=== PATIENT | male | born 1960 | race Caucasian/White ===

== ENCOUNTER 2022-08-10 09:17 | Emergency (ER) | payer OTHER ==
[~2022-08-10] VITALS: Ht 195.6 cm; Wt 113.4 kg
[2022-08-10 09:32] VITALS: BP_SYST 139
[2022-08-10 10:42] VITALS: BP_SYST 139
== END 2022-08-10 10:42 | disposition home or self-care (01) ==
LOC: SED 09:17
DX: M96.842 Postprocedural seroma of a musculoskeletal structure following a musculoskeletal system procedure (principal); I10 Essential (primary) hypertension; E78.5 Hyperlipidemia, unspecified; Z88.6 Allergy status to analgesic agent; Z79.899 Other long term (current) drug therapy
CPT/HCPCS: 99281

== ENCOUNTER 2024-05-27 15:17 | Emergency (ER) | payer OTHER ==
[~2024-05-27] VITALS: Ht 193 cm; Wt 104.3 kg
[2024-05-27 15:35] VITALS: BP_SYST 137; PULSE 85; RESP 18; TEMP 98.3; O2SAT 98
[2024-05-27 16:19] LABS: BASOPHILS % (AUTO) 0.6 % (0.0-2.0); EOSINOPHILS # (AUTO) 0.3 K/uL (0.0-0.4); EOSINOPHILS % (AUTO) 3.8 % (0.0-4.0); HEMATOCRIT 42.1 % (36-54); HEMOGLOBIN 14.5 g/dL (14.0-18.0); LYMPHOCYTES # (AUTO) 1.6 K/uL (1.0-5.5); MEAN CORPUSCULAR HEMOGLOBIN 32 pg (27-31); MEAN CORPUSCULAR HGB CONC 35 % (32-36); MEAN CORPUSCULAR VOLUME 92 fL (79.0-98.0); MONOCYTES # (AUTO) 0.4 K/uL (0.0-1.0); MONOCYTES % (AUTO) 6.4 % (1.7-9.3); NEUTROPHILS # (AUTO) 4.7 K/uL (1.8-7.7); NEUTROPHILS % (AUTO) 66.2 % (40.0-70.0); PLATELET COUNT (AUTO) 202 K/uL (130-430); RED BLOOD CELL COUNT(AUTO) 4.58 MIL/uL (4.2-6.2); RED CELL DISTRIBUTION WIDTH 14.5 % (9.0-15.0); WHITE BLOOD COUNT (AUTO) 7.1 K/uL (4.8-10.8)
[2024-05-27 16:25] LABS: CREATININE 1.6 mg/dL (0.55-1.30)
[2024-05-27 16:29] LABS: INR 0.9 (0.80-1.20); PROTHROMBIN TIME 9.7 SECS (9.5-12.5)
[2024-05-27 18:25] VITALS: BP_SYST 140; PULSE 77; RESP 16; TEMP 98.4; O2SAT 100
== END 2024-05-27 18:25 | disposition home or self-care (01) ==
LOC: SED 15:17
DX: R22.42 Localized swelling, mass and lump, left lower limb (principal); I12.9 Hypertensive chronic kidney disease with stage 1 through stage 4 chronic kidney disease, or unspecified chronic kidney disease; N18.9 Chronic kidney disease, unspecified; Z88.6 Allergy status to analgesic agent; Z96.652 Presence of left artificial knee joint
CPT/HCPCS: 36415; 73590; 80048; 85025; 85610; 85730; 93971; 99284